=== PATIENT | female | born 1965 | race Caucasian/White ===

== ENCOUNTER 2017-01-02 14:21 | Emergency (ER) | payer MEDICAID ==
[~2017-01-02] VITALS: Ht 149.9 cm; Wt 63.5 kg
[~2017-01-02 14:21] MED LIST: IBUP800T25 PO
[2017-01-02 14:24] VITALS: Ht 149.9 cm; Wt 63.5 kg
[2017-01-02] MEDS ORDERED: IBUPROFEN 600 MG TAB PO ONE (16:30)
[2017-01-02 16:35] LABS: URINE BLOOD (Dip) POC Trace-intact (NEGATIVE)
[2017-01-02] MEDS ORDERED: AMOX500C2 PO (16:51)
--- NOTE | 2017-01-02 17:28 | ERA ---
ER Documentation Chief Complaint Date/Time DATE: 01/02/17 TIME: 17:26 Chief Complaint fever and sore throat since yesterday HPI 51-year-old female presenting with a chief complaint of fever and pharyngitis 1 day. Patient does not take any medications and denies any past medical history. Denies cough, difficulty breathing, dysphagia, change in voice, drooling, fatigue, oral swelling, ear pain, or meningismus. Patients vaccination status is up to date. No recent travel. Patient has no other complaints and describes no other associated manifestations. Nursing notes have been reviewed and are consistent with history given. ROS All systems reviewed and are negative except as per history of present illness. Medications Home Meds Active Scripts Amoxicillin* (Amoxicillin*) 500 Mg Cap, 500 MG PO TID for 10 Days, CAP Prov:PHILIPP SILVERIO PA-C 01/02/17 Reported Medications Ibuprofen* (Ibuprofen*) 800 Mg Tablet, 800 MG PO NEDDED 11/08/11 Allergies Allergies: Uncoded Allergies: NONE (Allergy, 11/08/11) PMhx/Soc History of Surgery: Yes ( X2) Anesthesia Reaction: No Hx Neurological Disorder: No Hx Respiratory Disorders: No Hx Cardiac Disorders: Yes (HTN) Hx Psychiatric Problems: No Hx Miscellaneous Medical Probl: Yes (PREDIABETIC) Hx Alcohol Use: No Hx Substance Use: No Hx Tobacco Use: No Smoking Status: Never smoker Physical Exam Vitals Vital Signs Date Time Temp Pulse Resp B/P Pulse Ox O2 Delivery O2 Flow Rate FiO2 01/02/17 14:24 100.9 102 20 177/98 97 Physical Exam Const: Overweight 51-year-old female no acute distress Throat: Erythematous oropharynx with exudates visualized on the left side. Tonsils within normal limits. Moist mucous membranes. Neck: Tender anterior cervical lymphadenopathy palpated bilaterally. No posterior cervical lymphadenopathy, masses or goiter palpated. Trachea midline. Full range of motion. Supple. ~ No meningismus. Skin: No petechiae or rashes. No ulcer, induration, jaundice. Good turgor. Resp: No dyspnea, stridor, tripoding or drooling. Good air movement. Clear to auscultation bilaterally. Head: Normocephalic, Atraumatic. Eyes: Non-injected; No scleral erythema, discharge or foreign body. EOMI bilaterally. PERRLA. Ears: Normal External Ears, EACs clear, TM normal bilaterally without erythema. Nose: Normal nose without discharge, septal deviation, or sinus tenderness. Cardio: Regular rate and rhythm; No murmurs, gallops or rubs auscultated. No JVD grossly observed. Radial and posterior tibial pulses 2+ bilaterally. Capillary refill less than 2 seconds. Abd: Soft, non tender, non distended. No guarding, masses. Normal bowel sounds. No McBurney's point tenderness. MS: Normal motor strength, normal tone with gross examination. Back: No midline, flank or CVA tenderness. Ext: No cyanosis, edema or palpable cord. Normal movement of all extremities grossly observed. Neur: Awake, alert and oriented x3. Neurovascularly intact bilaterally. Psych: Normal Mood and Affect. Results 24 hrs Laboratory Tests Test 01/02/17 16:42 Bedside Urine pH (LAB) 7.5 Bedside Urine Protein (LAB) Negative Bedside Urine Glucose (UA) Negative Bedside Urine Ketones (LAB) Negative Bedside Urine Blood Trace-intact Bedside Urine Nitrite (LAB) Negative Bedside Urine Leukocyte Esterase (L Negative Current Medications Medications (Trade) Dose Ordered Sig/Margareth Route PRN Reason Start Time Stop Time Status Last Admin Dose Admin Ibuprofen (Motrin) 600 mg ONCE ONCE PO 01/02/17 16:30 01/02/17 16:31 DC 01/02/17 16:34 Procedures/MDM Patient was evaluated and worked up for pharyngitis presenting as described in the history and physical exam. The patient has a [place] Criteria of 4-5. The current most likely diagnosis is pharyngitis due to group B streptococcus versus viral pharyngitis. The treatment plan will thus include out-patient antibiotics and supportive measures. At this time I do not suspect diphtheria, Anton-Delgado virus, peritonsillar abscess, epiglottitis, retropharyngeal abscess , parapharyngeal abscess, or allergic reaction. I no longer have suspicion for endangerment of the airway. I have spoke with the patients regarding their condition and future management. They have verbally responded that they understand and agree with their status and treatment plan. The patients vitals are stable, and their current condition is appropriate for discharge. The patient will be given discharge instructions with return precautions. Departure Diagnosis: Primary Impression: Strep pharyngitis Additional Impression: Fever Qualified Code: R50.9 - Fever, unspecified fever cause Condition: Stable Patient Instructions: Fever Control (Adult) Additional Instructions: Eddie un seguimiento con montiel PCP dentro de los prximos 1-3 wong para tobias evaluaci n ms completa y tobias posible derivacin a un especialista. Devuelva el departamento de emergencia inmediatamente si los sntomas empeoran o cambian. Si tiene alguna pregunta con respecto a los medicamentos, consulte con montiel farmac utico o con nosotros antes de salir. Si se producen reacciones adversas mientras yanick sabina medicamentos, suspenda el tratamiento y regrese inmediatamente al servicio de urgencias. [place] sabina medicamentos segn las indicaciones y complete el curso completo del tratamiento. PHILIPP SILVERIO PA-C Jan 02, 2017 17:28
[2017-01-02 18:05] VITALS: TEMP 99.1
== END 2017-01-02 18:06 | disposition home or self-care (01) ==
LOC: FTE 14:21
DX: J02.0 Streptococcal pharyngitis (principal); I10 Essential (primary) hypertension
CPT/HCPCS: 81003; Z7502; Z7610; 99283